=== PATIENT | male | born 1985 | race Two or more races ===

== ENCOUNTER 2021-05-03 11:01 | Emergency (ER) | payer OTHER ==
[~2021-05-03] VITALS: Ht 190.5 cm; Wt 145.5 kg
[2021-05-03] MEDS ORDERED: ACETAMINOPHEN 500 MG TABLET PO ONE (11:45)
[2021-05-03] MEDS ORDERED: IBUPROFEN 600 MG TABLET PO ONE (11:45)
[2021-05-03 13:30] VITALS: BP 132/72
== END 2021-05-03 13:33 | disposition home or self-care (01) ==
LOC: EMS 11:09
DX: S93.402A Sprain of unspecified ligament of left ankle, initial encounter (principal); M25.562 Pain in left knee; W17.89XA Other fall from one level to another, initial encounter; Y93.89 Activity, other specified; Y92.89 Other specified places as the place of occurrence of the external cause; Y99.8 Other external cause status
CPT/HCPCS: 71101; 99284